=== PATIENT | female | born 1985 | race American Indian/Alaskan Native ===

== ENCOUNTER 2018-12-19 10:04 | Outpatient (CLI) | payer BC ==
--- NOTE | 2018-12-19 11:07 | Mammography Report ---
BILATERAL DIGITAL DIAGNOSTIC MAMMOGRAM WITH CAD -- 12/19/2018 RIGHT LIMITED BREAST ULTRASOUND INDICATION: 33-year-old with a right palpable breast lump. LUMP OF RIGHT BREAST/FAM HX OF BREAST CANC ER TECHNIQUE: Digital bilateral mammographic imaging was performed. Limited ultrasound was performed. T his examination was interpreted with the benefit of Computer-Aided Detection (CAD) analysis. COMPARISON: None. FINDINGS: Breast Density: The breasts are heterogeneously dense, which may obscure small masses. MAMMOGRAPHIC FINDINGS: There is no evidence of dominant mass, suspicious calcifications or architectu ral distortion in the left breast. A low-density superficial circumscribed mass is identified at a tr iangular marker in the upper outer right breast. No other mass. No architectural distortion or suspic ious calcifications of the right breast. ULTRASOUND FINDINGS: Targeted ultrasound evaluation was performed of the area of interest. Ultrasou nd demonstrated an oval superficial solid heterogeneous hypoechoic mass at 11:00 near the edge of the areola. It has a mild lobular contour and measures 1.5 x 1.0 x 1.3 cm. Blood flow is demonstrated wi thin the mass by color Doppler. No shadowing. IMPRESSION: A 1.5 cm palpable right breast mass at 11:00 near the edge of the areola. Recommend ultra sound-guided needle biopsy to exclude malignancy. The patient was informed of the recommendation for needle biopsy at the time of the exam. Follow up recommendation: Biopsy BI-RADS Category 4: Suspicious for Malignancy. A "normal" or negative report should not discourage follow up or biopsy of a clinically significant f inding. A written summary of these findings will be mailed to the patient. The patient will be entered into a mammography reporting system which will generate a reminder letter for the patient's next appointmen t at the appropriate interval. According to the [employer], yearly mammograms are recommended starting at age 40 and continuing as long as a woman is in good health. Breast MRI is recommended for women with an roc roximately 20-25% or greater lifetime risk of breast cancer, including women with a strong family his tory of breast or ovarian cancer and women who have been treated for Hodgkin's disease. Signer Name: Niranjan De Dios MD Signed: 12/19/2018 11:03 AM Workstation Name: [id number]
== END 2018-12-19 10:05 | disposition home or self-care (01) ==
LOC: MAMMO 10:04
PROVIDERS: ATTEND Family Medicine
DX: N63.10 Unspecified lump in the right breast, unspecified quadrant (principal); Z80.3 Family history of malignant neoplasm of breast
CPT/HCPCS: 77066

== ENCOUNTER 2019-01-02 08:41 | Outpatient (CLI) | payer BC ==
--- NOTE | 2019-01-02 09:58 | Ultrasound Report ---
ULTRASOUND-GUIDED NEEDLE CORE BIOPSY RIGHT BREAST WITH CLIP PLACEMENT CLINICAL: A palpable right breast mass at 11:00 2 cm from the nipple. COMPARISON: 12/19/2018 FINDINGS: The procedure was explained to the patient and informed consent was obtained. Ultrasound demonstrated the previously identified mass. I marked the breast with a felt tip marker and a timeout was called. The skin was prepped with Chloro -Prep and anesthetized with 1% lidocaine. Needle core biopsy was performed through a small dermatotomy using ultrasound guidance, 2% lidocaine with epinephrine for deep anesthesia and a 14-gauge Achieve biopsy device. 3 cores were obtained and placed in formalin. A clip was deployed within the mass. The patient tolerated the procedure well and there were no apparent complications. Hemostasis was ach ieved with minimal effort and a sterile dressing was applied. A post procedure mammogram demonstrated concordant clip deployment. She left the department in good c ondition and was given instructions for wound care and follow-up. IMPRESSION: Uncomplicated ultrasound guided needle core biopsy with clip placement right breast. Signer Name: Niranjan De Dios MD Signed: 01/02/2019 9:54 AM Workstation Name: [id number]
--- NOTE | 2019-01-02 10:00 | Mammography Report ---
RIGHT DIGITAL DIAGNOSTIC MAMMOGRAM CLINICAL: For clip placement after ultrasound biopsy. COMPARISON: 12/19/2018 FINDINGS: A biopsy clip is identified within the mass at 11:00 2 cm from the nipple. IMPRESSION: Concordant clip deployment. Signer Name: Niranjan De Dios MD Signed: 01/02/2019 9:55 AM Workstation Name: [id number]
== END 2019-01-02 08:42 | disposition home or self-care (01) ==
LOC: SPVWC 08:41
PROVIDERS: ATTEND Family Medicine
DX: N63.11 Unspecified lump in the right breast, upper outer quadrant (principal); D24.1 Benign neoplasm of right breast
CPT/HCPCS: 88305